=== PATIENT | male | born 1995 | race Caucasian/White ===

== ENCOUNTER 2021-01-16 01:08 | Inpatient (IN) | payer SELFPAY ==
[~2021-01-16] VITALS: Ht 175 cm; Wt 73.9 kg
[2021-01-16] MEDS ORDERED: POTASSIUM CL 10MEQ/50ML IVPB 50 ML IV SCH (05:45)
[2021-01-16] MEDS ORDERED: D5 1/2 NS 1000 ML IV SOLUTION 1,000 ML IV ONE (05:51)
[2021-01-16] MEDS ORDERED: POTASSIUM CL 10MEQ/50ML IVPB 50 ML IV ONE (05:52)
[2021-01-16] MEDS: D5 1/2 NS 1000 ML IV SOLUTION 1,000 ML IV SCH ×2 (05:58→10:12)
[2021-01-16 05:59] LABS: BASOPHILS # (AUTO) 0.1 10^3/uL (0.0-0.1); BASOPHILS % (AUTO) 1 % (0-10); EOSINOPHILS # (AUTO) 0.2 10^3/uL (0.0-0.3); EOSINOPHILS % (AUTO) 4 % (0-10); HEMATOCRIT 40 % (40-54); HEMOGLOBIN 13.9 g/dL (13.3-17.7); LYMPHOCYTES # (AUTO) 3.4 10^3/uL (1.0-4.0); LYMPHOCYTES % (AUTO) 51 % (12-44); MEAN CORPUSCULAR HEMOGLOBIN 32 pg (25-34); MEAN CORPUSCULAR HGB CONC 35 g/dL (32-36); MEAN CORPUSCULAR VOLUME 90 fL (80-99); MEAN PLATELET VOLUME 11.1 fL (9.0-12.2); MONOCYTES # (AUTO) 0.6 10^3/uL (0.0-1.0); MONOCYTES % (AUTO) 9 % (0-12); NEUTROPHILS # (AUTO) 2.3 10^3/uL (1.8-7.8); NEUTROPHILS % (AUTO) 35 % (42-75); PLATELET COUNT 155 10^3/uL (130-400); WHITE BLOOD COUNT 6.6 10^3/uL (4.3-11.0)
[2021-01-16] MEDS: KCL 20 MEQ TAB (K-DUR) PO SCH (06:02)
[2021-01-16] MEDS: POTASSIUM CL 10MEQ/50ML IVPB 50 ML IV SCH ×10 (06:02→17:57)
[2021-01-16] MEDS: MAGNESIUM 1 GM/100 ML IVPB 100 ML IV SCH (06:02)
[2021-01-16] MEDS: 1/2 NS IV SOLUTION 1,000 ML IV SCH ×3 (06:03→12:39)
[2021-01-16 06:12] LABS: POTASSIUM 2.9 MMOL/L (3.6-5.0)
[2021-01-16 06:14] LABS: CALCIUM 8.5 MG/DL (8.5-10.1)
[2021-01-16 06:15] LABS: CALCIUM 8.4 MG/DL (8.5-10.1)
[2021-01-16 06:18] LABS: PHOSPHORUS 2.8 MG/DL (2.3-4.7)
[2021-01-16 06:20] LABS: CREATININE SERUM 0.98 MG/DL (0.60-1.30)
[2021-01-16 06:21] LABS: MAGNESIUM 1.8 MG/DL (1.6-2.4)
[2021-01-16 08:26] LABS: POTASSIUM 2.9 MMOL/L (3.6-5.0)
[2021-01-16 08:27] LABS: CALCIUM 8.6 MG/DL (8.5-10.1)
[2021-01-16 08:32] LABS: CREATININE SERUM 0.92 MG/DL (0.60-1.30)
--- NOTE | 2021-01-16 09:23 | Tele-ICU Progress Note ---
Subjective Date Seen by a Provider: Jan 16, 2021 Time Seen by a Provider: 08:15 Subjective/Events-last exam This virtual visit was conducted using real time audio/video. Thank you for asking us to see this patient for DKA HPC: Recent events: BG down to 149. PE: Resting comfortably. VSS HEENT: No obvious masses, adenopathy or JVD. Chest: clear to auscultation. CV: RRR S1 S2 No murmur or added sounds. Abd: Non-tender. Bowel sounds Y. : Unremarkable. Valenzuela N. VICE PRESIDENT SAFETY/psychiatric: Alert and oriented, grossly intact. No obvious focal findings. Extremities: No edema. Capillary refill < 3 seconds. Skin: unremarkable. Results: Elevated BG 147. Decreased K 3.0 CO2 14. A/P: DKA. Lower insulin rate. Cont IVF. Available chart/ vitals / labs / images reviewed. Video assessment done using teleICU camera, rest of exam as per RN. Critical Care: critically ill patient. Vidya Escoto Discussed with MASON Haley. Asked RN to reach out to eICU if any questions or concerns later. Time spent with patient/coordination of care with other health professionals (mins): 15 Sepsis Event Evaluation Height, Weight, BMI Height: '" Weight: lbs. oz. kg; 23.57 BMI Method: Exam Exam Patient acknowledged, consented, and participated in this virtual visit which was conducted using real time audio/video Vital Signs Date Time Temp Pulse Resp B/P (MAP) Pulse Ox O2 Delivery O2 Flow Rate FiO2 01/16/21 08:32 36.4 01/16/21 07:35 Room Air 01/16/21 07:00 64 01/16/21 06:45 70 18 101/75 100 Room Air 01/16/21 06:30 72 16 103/75 100 Room Air 01/16/21 06:22 36.7 64 24 104/84 100 Room Air 01/16/21 06:15 75 18 104/77 99 Room Air 01/16/21 05:48 68 01/16/21 05:40 66 16 104/84 100 Room Air Height & Weight Height: '" Weight: lbs. oz. kg; 23.57 BMI Method: General Appearance: No Apparent Distress Capillary Refill: Less Than 3 Seconds Peripheral Pulses: 1+ Dorsalis Pedis (R), 1+ Left Dors-Pedis (L) Results Lab Laboratory Tests 01/16/21 05:52 01/16/21 08:15 Assessment/Plan Assessment/Plan See free text Critical Care: Critically Ill Patient AWILDA BARAKAT MD Jan 16, 2021 09:23
[2021-01-16] MEDS ORDERED: inSUlin ASPART (NovoLOG) 1 UNIT/0.01 ML (CHARGE PER UNIT) SC SCH (10:00)
[2021-01-16 11:54] LABS: CLARITY,URINE CLEAR; COLOR,URINE YELLOW; GLUCOSE, URINE (UA) 3+ (NEGATIVE); KETONES,URINE 2+ (NEGATIVE); LEUKOCYTE ESTERASE ,URINE NEGATIVE (NEGATIVE); NITRITE,URINE NEGATIVE (NEGATIVE); PROTEIN,URINE NEGATIVE (NEGATIVE)
[2021-01-16 12:04] LABS: BACTERIA,URINE NEGATIVE /HPF; BILIRUBIN,URINE NEGATIVE (NEGATIVE)
--- NOTE | 2021-01-16 12:19 | History & Physical ---
JESSIKA BUCKLEY 01/16/21 1219: History of Present Illness History of Present Illness Reason for visit/HPI Patient is a 25yo male who reports that 5 days ago he noticed some dizzyness, and his urine was a red/orange color. His urine continued to have the red/orange color after a few days so he came to ER. Denies ever having similar symptoms in the past. He had not been previously diagnosed with diabetes. His mother is a Type 1 diabetic. His uncle also had T1DM. He had pancreatitis 2yrs ago which he was hospitalized for. Date of Admission Jan 16, 2021 at 05:27 Date Seen by a Provider: Jan 16, 2021 Time Seen by a Provider: 09:30 I consulted on this patient on 01/16/21 12:12 Attending Physician Jasmyne Mendoza MD Admitting Physician No,Local Physician Consult Allergies and Home Medications Allergies Coded Allergies: No Known Allergies (Verified Allergy, Unknown, 01/16/21) Patient Home Medication List No Active Prescriptions or Reported Meds Past Njscuhv-Snoruc-Ggvuwe Hx Patient Social History Tobacco Use?: Yes Tobacco type used: Cigarettes Smoking Status: Current Everyday Smoker Smokeless Tobacco Frequency: Never a User Use of E-Cig and/or Vaping dev: No Substance type: Methamphetamine Additional substance use comme: EVERYDAY FOR THE LAST 3 MONTHS Substance frequency: Daily Alcohol Use?: Yes Alcohol type: Beer Alcohol Frequency: Several times a month Additional Alcohol Comments: 15 PACK PER DAY PER PATIENT REPORT Pt feels they are or have been: Yes Immunizations Up To Date Tetanus Booster (TDap): Unknown Hepatitis A: No Hepatitis B: No Current Status Advance Directives: No Communicates: Verbally Primary Language: [place] Preferred Spoken Language: [place] Is interpretation needed?: No Implanted or Applied Medical D: None Review of Systems Constitutional: No chills, No diaphoresis; dizziness; No fever Respiratory: No cough, No short of breath Cardiovascular: No syncope Gastrointestinal: No nausea, No vomiting Genitourinary: other (red/orange discoloration) Physical Exam Vital Signs Vital Signs - First Documented 01/16/21 01/16/21 05:40 06:22 Temp 36.7 Pulse 66 Resp 16 B/P (MAP) 104/84 Pulse Ox 100 O2 Delivery Room Air Capillary Refill : Less Than 3 Seconds Height, Weight, BMI Height: '" Weight: lbs. oz. kg; 23.57 BMI Method: General Appearance: No Apparent Distress, WD/WN HEENT: PERRL/EOMI, Moist Mucous Membranes Neck: Normal Inspection, Supple Respiratory: Lungs Clear, Normal Breath Sounds, No Accessory Muscle Use, No Respiratory Distress Cardiovascular: Regular Rate, Rhythm, No Edema, No Murmur Gastrointestinal: Normal Bowel Sounds, Non Tender, Soft Extremity: Normal Inspection, No Pedal Edema Neurologic/Psychiatric: Alert, Oriented x3, Normal Mood/Affect Skin: Normal Color, Warm/Dry Assessment/Plan Assessment and Plan Diabetic Ketoacidosis Glucose down to 123, Potassium 2.9 Anion gap WNL Continue IV fluids, supplement potassium Levemir Sliding scale insulin Patient will need diabetes education Admission Diagnosis Diabetic ketoacidosis Admission Status: Inpatient Order (span 2 midnights) Reason for Inpatient Admission: IV fluids, insulin JASMYNE MENDOZA MD 01/16/21 1607: History of Present Illness History of Present Illness Time Seen by a Provider: 09:20 Allergies and Home Medications Allergies Coded Allergies: No Known Allergies (Verified Allergy, Unknown, 01/16/21) Patient Home Medication List Home Medication List Reviewed: Yes No Active Prescriptions or Reported Meds Past Phyzxxs-Gpbwlc-Pizfhd Hx Family Medical History Reviewed and Corrections made Diabetes Physical Exam General Appearance: No Apparent Distress, WD/WN HEENT: PERRL/EOMI, Pharynx Normal Neck: Normal Inspection, Supple Respiratory: Lungs Clear, Normal Breath Sounds, No Respiratory Distress Cardiovascular: Regular Rate, Rhythm, No Edema, No Murmur Gastrointestinal: Normal Bowel Sounds, Non Tender, Soft Extremity: Normal Inspection, Non Tender, No Pedal Edema Neurologic/Psychiatric: Alert, Oriented x3, No Motor/Sensory Deficits, Normal Mood/Affect Skin: Normal Color, Warm/Dry Assessment/Plan Assessment and Plan Admitted for new onset T1DM with ketoacidosis. Started on insulin gtt. Begin basal/bolus insulin regimen and transition off drip. If stable will transfer out of ICU. Diabetes education ordered. Likely discharge tomorrow. Problems: (1) Diabetic ketoacidosis Status: Acute Qualifiers: Qualified Codes: E10.10 - Type 1 diabetes mellitus with ketoacidosis without coma (2) Diabetes mellitus, new onset Status: Acute (3) T1DM (type 1 diabetes mellitus) Status: Acute Qualifiers: Qualified Codes: E10.10 - Type 1 diabetes mellitus with ketoacidosis without coma Admission Diagnosis Admission Status: Inpatient Order (span 2 midnights) Reason for Inpatient Admission: IV insulin and fluids Supervisory-Addendum Brief Verification & Attestation Participated in pt care: history, MDM, physical Personally performed: exam, history, MDM, supervision of care Care discussed with: Medical Student Procedures: n/a Results interpretation: Verified all documentation A medical student performed and documented this service in my presence. I reviewed and verified all information documented by the medical student and made modifications to such information, when appropriate. I personally performed the physical exam and medical decision making. JESSIKA BUCKLEY Jan 16, 2021 12:19 JASMYNE MENDOZA MD Jan 16, 2021 16:07
[2021-01-16] MEDS: inSUlin ASPART (NovoLOG) 1 UNIT/0.01 ML (CHARGE PER UNIT) SC SCH ×5 (12:38→21:28)
[2021-01-16 14:20] LABS: POTASSIUM 3.1 MMOL/L (3.6-5.0)
[2021-01-16 14:22] LABS: CALCIUM 8.5 MG/DL (8.5-10.1)
[2021-01-16 14:26] LABS: CREATININE SERUM 0.85 MG/DL (0.60-1.30)
[2021-01-16] MEDS ORDERED: diphenhydrAMINE 25 MG TAB (BENADRYL) PO PRN (16:00)
[2021-01-16] MEDS ORDERED: ANTACID SUSP 30 ML UDC (MYLANTA) PO PRN (16:00)
[2021-01-16] MEDS ORDERED: ONDANSETRON 4 MG (ZOFRAN) ORAL DISSOLVE TAB PO PRN (16:00)
[2021-01-16] MEDS ORDERED: MELATONIN 3 MG TABLET PO PRN (16:00)
[2021-01-16] MEDS ORDERED: ACETAMINOPHEN 325 MG TABLET PO PRN (16:00)
[2021-01-16] MEDS ORDERED: ONDANSETRON 4 MG/2 ML (SDV) Z0FRAN IV PRN (16:00)
[2021-01-16] MEDS ORDERED: polyethylene glycoL POWDER 17 GM (MIRALAX) PACK PO PRN (16:00)
[2021-01-17] MEDS: inSUlin ASPART (NovoLOG) 1 UNIT/0.01 ML (CHARGE PER UNIT) SC SCH ×5 (05:32→17:06)
[2021-01-17 05:45] LABS: POTASSIUM 3.4 MMOL/L (3.6-5.0)
[2021-01-17 05:51] LABS: CREATININE SERUM 0.71 MG/DL (0.60-1.30)
[2021-01-17 05:53] LABS: MAGNESIUM 1.6 MG/DL (1.6-2.4)
[2021-01-17] MEDS: POTASSIUM CL 10MEQ/50ML IVPB 50 ML IV SCH (05:53)
[2021-01-17] MEDS: KCL 20 MEQ TAB (K-DUR) PO SCH (05:53)
[2021-01-17] MEDS: MAGNESIUM 1 GM/100 ML IVPB 100 ML IV SCH ×3 (05:55→07:19)
[2021-01-17] MEDS ORDERED: KCL 20 MEQ TAB (K-DUR) PO ONE (06:00)
[2021-01-17] MEDS ORDERED: INSU100V16 SQ (11:36)
[2021-01-17] MEDS ORDERED: INSU100V6 SQ (11:36)
[2021-01-17] MEDS ORDERED: INSU100I10 SQ (11:39)
[2021-01-17] MEDS ORDERED: INSU100I14 SQ (11:39)
--- NOTE | 2021-01-17 12:39 | Discharge Summary ---
Discharge Summary Hospital Course Was the Problem List Reviewed?: Yes Problems/Dx: (1) Diabetic ketoacidosis Status: Acute Qualifiers: Qualified Codes: E10.10 - Type 1 diabetes mellitus with ketoacidosis without coma (2) Diabetes mellitus, new onset Status: Acute (3) T1DM (type 1 diabetes mellitus) Status: Acute Qualifiers: Qualified Codes: E10.10 - Type 1 diabetes mellitus with ketoacidosis without coma Hospital Course Date of Admission: Jan 16, 2021 at 05:27 Admission Diagnosis : T1DM with ketoacidosis Family Physician/Provider: Floresita,Local Physician Date of Discharge: 01/17/21 Discharge Diagnosis: T1DM with ketoacidosis Hospital Course: Jossy Arshad is a 25 year old male who was admitted with new onset type 1 diabetes mellitus with ketoacidosis. He was started on the DKA protocol with IV insulin and fluids. His ketoacidosis quickly resolved and he was transitioned to basal/bolus insulin. He was stabilized and received diabetic education and dietary consultation. He was prescribed Lantus and Novolog on discharge. He should establish with a primary care physician. He was discharged home in stable condition. Labs and Pending Lab Test: Laboratory Tests 01/16/21 12:33: Glucometer 212H 01/16/21 14:00: Sodium Level 137, Potassium Level 3.1L, Chloride Level 109H, Carbon Dioxide Level 20L, Anion Gap 8, Blood Urea Nitrogen 6L, Creatinine 0.85, Estimat Glomerular Filtration Rate 110, BUN/Creatinine Ratio 7, Glucose Level 189H, Calcium Level 8.5 01/16/21 16:28: Glucometer 161H 01/16/21 20:01: Glucometer 331H 01/17/21 05:18: Glucometer 150H 01/17/21 05:24: Sodium Level 140, Potassium Level 3.4L, Chloride Level 104, Carbon Dioxide Level 22, Anion Gap 14, Blood Urea Nitrogen 8, Creatinine 0.71, Estimat Glomerular Filtration Rate 135, BUN/Creatinine Ratio 11, Glucose Level 152H, Calcium Level 9.0, Magnesium Level 1.6 Microbiology 01/16/21 MRSA Screen - Final, Complete MRSA not isolated Home Meds Active Novolog Flexpen (Insulin Aspart) 300 Units/3 Ml Solution 4 Units SQ AC 30 Days Lantus Solostar (Insulin Glargine,Hum.rec.anlog) 100 Unit/1 Ml Insuln.pen 15 Unit SQ DAILY 30 Days Assessment/Pt Instructions Take medications as prescribed. Begin taking insulin for type 1 diabetes mellitus. Establish care with a primary care physician. Return with worsening symptoms. Discharge Planning: <30 minutes discharge planning Discharge Instructions Discharge Diet: ADA Diet Activity as Tolerated: Yes Discharge Physical Examination Vital Signs Vital Signs Date Time Temp Pulse Resp B/P (MAP) Pulse Ox O2 Delivery O2 Flow Rate FiO2 01/17/21 12:00 36.3 71 20 124/73 97 Room Air General Appearance: No Apparent Distress, WD/WN HEENT: PERRL/EOMI, Pharynx Normal Respiratory: Lungs Clear, Normal Breath Sounds, No Respiratory Distress Cardiovascular: Regular Rate, Rhythm, No Edema, No Murmur Gastrointestinal: Normal Bowel Sounds, Non Tender, Soft Extremity: Normal Inspection, Non Tender, No Pedal Edema Neurologic/Psychiatric: Alert, Oriented x3, No Motor/Sensory Deficits, Normal Mood/Affect Allergies: Coded Allergies: No Known Allergies (Verified Allergy, Unknown, 01/16/21) Discharge Summary Date of Admission Jan 16, 2021 at 05:27 Date of Discharge Discharge Date: Jan 17, 2021 Discharge Time: 12:38 Admission Diagnosis T1DM with ketoacidosis Discharge Diagnosis (1) Diabetic ketoacidosis Status: Acute Qualifiers: Qualified Codes: E10.10 - Type 1 diabetes mellitus with ketoacidosis without coma (2) Diabetes mellitus, new onset Status: Acute (3) T1DM (type 1 diabetes mellitus) Status: Acute Qualifiers: Qualified Codes: E10.10 - Type 1 diabetes mellitus with ketoacidosis without coma JASMYNE MENDOZA MD Jan 17, 2021 12:38
[2021-01-17 15:38] VITALS: BP 124/73
== END 2021-01-17 18:08 | disposition home or self-care (01) | DRG 639 ==
LOC: ICU 05:27 → 4TH 17:08
PROVIDERS: ADMIT Internal Medicine; ATTEND Internal Medicine
DX: E10.10 Type 1 diabetes mellitus with ketoacidosis without coma (principal); F17.210 Nicotine dependence, cigarettes, uncomplicated; F15.90 Other stimulant use, unspecified, uncomplicated
CPT/HCPCS: 36415; 80048; 81000; 82010; 82947; 83036; 83735; 84100; 85025; 87081